=== PATIENT | female | born 1930 | race Caucasian/White ===

== ENCOUNTER 2021-06-30 21:08 | Inpatient (IN) ==
[2021-07-01] MEDS ORDERED: MOM Conc 10 ML UD.LIQ PO PRN (02:08)
[2021-07-01] MEDS ORDERED: Ondansetron 4 MG/2 ML VIAL IVP PRN (02:08)
[2021-07-01] MEDS ORDERED: Naloxone 0.4 MG/ML INJ IVP PRN (02:08)
[2021-07-01] MEDS ORDERED: Melatonin 3 MG TABLET PO PRN (02:08)
[2021-07-01] MEDS ORDERED: Acetaminophen 325 MG TABLET PO PRN (02:08)
[2021-07-01] MEDS ORDERED: Dextrose Gel 15 GM/37.5 ML TUBE PO PRN ×2 (02:20)
[2021-07-01] MEDS ORDERED: D5% in Water 1,000 ML IVC PRN (02:20)
[2021-07-01] MEDS ORDERED: *HR* Dextrose 50 % in Water (Syg) 50 ML SYRINGE IVP PRN (02:20)
[2021-07-01] MEDS ORDERED: Albuterol 2.5 MG/3 ML NEBULIZER IH PRN (03:26)
[2021-07-01 04:17] LABS: Basophils % 0.4 %; Eosinophils # 0.2 K/mcL (0.0-0.6); Eosinophils % 1.6 %; Hematocrit 30.2 % (35.3-44.9); Hemoglobin 9.3 g/dL (11.5-15.4); Immature Granulocytes % 0.4 % (0-4); Lymphocytes % 20.6 %; Mean Corpuscular HGB Conc 30.8 g/dL (31.6-35.5); Mean Corpuscular Hemoglobin 23.5 pg (28.0-33.3); Mean Corpuscular Volume 76.5 fL (83.0-100.0); Mean Platelet Volume 9.5 fL (9.4-12.4); Monocytes # 0.8 K/mcL (0.0-1.3); Monocytes % 8.3 %; Neutrophils # 6.5 K/mcL (1.6-8.9); Platelet Count 302 K/mcL (140-400); Red Blood Count 3.95 M/mcL (3.82-4.97); Red Cell Distribution Width 17.3 % (11.5-14.5); Segmented Neutrophils % 68.7 %; White Blood Count 9.5 K/mcL (4.3-11.1)
[2021-07-01 04:34] LABS: BUN/Creatinine Ratio 30 (6-26); Blood Urea Nitrogen 31 mg/dL (8-23); Calcium 9.2 mg/dL (8.6-10.3); Carbon Dioxide 25 mEq/L (23-29); Chloride 95 mEq/L (98-107); Glucose 203 mg/dL (70-105); Magnesium 1.4 mg/dL (1.6-2.6); Osmolality,Calculated 284 (280-300); Phosphorous 3.4 mg/dL (2.7-4.5); Potassium 3.9 mEq/L (3.5-5.1); Sodium 131 mEq/L (136-145); eGFR For African Americans > 60 (> 60); eGFR For Non-African Americans 50 (> 60)
[2021-07-01] MEDS ORDERED: Perflutren Lipid Microsphere 1.3 ML in 0.9 % Sodium Chloride 8.7 ML IVP PRN (04:35)
[2021-07-01] MEDS ORDERED: Nitroglycerin 0.4 MG TAB.SUBL SL PRN (04:35)
[2021-07-01] MEDS ORDERED: Aspirin 325 MG TABLET PO ONE (04:35)
[2021-07-01 04:41] LABS: Procalcitonin 0.03 ng/mL (0.00-0.15)
[2021-07-01 05:31] LABS: Iron 53 mcg/dL (50-170); Lactate Dehydrogenase 296 Units/L (140-271); Total Protein 6.7 g/dL (6.4-8.9)
[2021-07-01 05:44] LABS: Thyroid Stimulating Hormone 2.496 mcIU/mL (0.340-5.600)
[2021-07-01 06:22] LABS: INR 1.5; Prothrombin Time 16.3 Seconds (9.4-12.1)
[2021-07-01] MEDS: cefTRIAXone 1,000 MG in Water for inj. (sterile) 10 ML IVP SCH (07:47)
[2021-07-01] MEDS: Insulin LISPRO 300 UNITS/3 ML VIAL SUBQ SCH ×3 (08:01→16:47)
[2021-07-01] MEDS: DilTIAZem CD (24hr) 120 MG CAP.ER.24H PO SCH (11:08)
[2021-07-01] MEDS: *HR* Digoxin 0.125 MG TABLET PO SCH (11:08)
[2021-07-02 01:35] LABS: Basophils # 0.1 K/mcL (0.0-0.2); Basophils % 0.5 %; Eosinophils # 0.2 K/mcL (0.0-0.6); Eosinophils % 1.6 %; Hematocrit 29.3 % (35.3-44.9); Immature Granulocytes % 0.4 % (0-4); Lymphocytes # 1.5 K/mcL (0.6-4.6); Lymphocytes % 15.8 %; Mean Corpuscular HGB Conc 30.7 g/dL (31.6-35.5); Mean Corpuscular Hemoglobin 23.5 pg (28.0-33.3); Mean Corpuscular Volume 76.5 fL (83.0-100.0); Mean Platelet Volume 9.8 fL (9.4-12.4); Monocytes # 0.8 K/mcL (0.0-1.3); Monocytes % 8.6 %; Platelet Count 310 K/mcL (140-400); Red Blood Count 3.83 M/mcL (3.82-4.97); Red Cell Distribution Width 17.2 % (11.5-14.5); Segmented Neutrophils % 73.1 %; White Blood Count 9.6 K/mcL (4.3-11.1)
[2021-07-02 01:47] LABS: INR 1.6; Prothrombin Time 17.6 Seconds (9.4-12.1)
[2021-07-02 01:56] LABS: Calcium 8.5 mg/dL (8.6-10.3); Potassium 3.8 mEq/L (3.5-5.1)
[2021-07-02] MEDS ORDERED: Aspirin 81 MG TAB.CHEW PO SCH (09:00)
[2021-07-02] MEDS: Aspirin 81 MG TAB.CHEW PO SCH (09:41)
[2021-07-02] MEDS: DilTIAZem CD (24hr) 120 MG CAP.ER.24H PO SCH (09:42)
[2021-07-02] MEDS: cefTRIAXone 1,000 MG in Water for inj. (sterile) 10 ML IVP SCH (09:42)
[2021-07-02] MEDS: *HR* Digoxin 0.125 MG TABLET PO SCH (09:42)
[2021-07-02] MEDS: Insulin LISPRO 300 UNITS/3 ML VIAL SUBQ SCH ×3 (09:43→17:34)
[2021-07-02] MEDS: Cyanocobalamin (B-12) 1,000 MCG TABLET PO SCH (13:09)
[2021-07-02] MEDS: Furosemide 40 MG/4 ML VIAL IVP SCH (13:09)
[2021-07-03 02:36] LABS: INR 1.4; Prothrombin Time 15.5 Seconds (9.4-12.1)
[2021-07-03 02:48] LABS: Basophils % 0.3 %; Eosinophils # 0.2 K/mcL (0.0-0.6); Eosinophils % 2.4 %; Hematocrit 30.2 % (35.3-44.9); Hemoglobin 9.5 g/dL (11.5-15.4); Immature Granulocytes % 0.5 % (0-4); Lymphocytes # 1.4 K/mcL (0.6-4.6); Lymphocytes % 15.4 %; Mean Corpuscular HGB Conc 31.5 g/dL (31.6-35.5); Mean Corpuscular Hemoglobin 24.2 pg (28.0-33.3); Mean Platelet Volume 9.9 fL (9.4-12.4); Monocytes # 0.8 K/mcL (0.0-1.3); Monocytes % 9.5 %; Neutrophils # 6.4 K/mcL (1.6-8.9); Platelet Count 306 K/mcL (140-400); Red Blood Count 3.92 M/mcL (3.82-4.97); Red Cell Distribution Width 17.6 % (11.5-14.5); Segmented Neutrophils % 71.9 %; White Blood Count 8.9 K/mcL (4.3-11.1)
[2021-07-03 02:51] LABS: Calcium 8.4 mg/dL (8.6-10.3); Potassium 3.9 mEq/L (3.5-5.1)
[2021-07-03 02:52] LABS: Lactate Dehydrogenase 291 Units/L (140-271); Total Protein 6.3 g/dL (6.4-8.9)
[2021-07-03] MEDS: cefTRIAXone 1,000 MG in Water for inj. (sterile) 10 ML IVP SCH (09:30)
[2021-07-03] MEDS: *HR* Digoxin 0.125 MG TABLET PO SCH (09:30)
[2021-07-03] MEDS: Cyanocobalamin (B-12) 1,000 MCG TABLET PO SCH (09:30)
[2021-07-03] MEDS: Furosemide 40 MG/4 ML VIAL IVP SCH (09:30)
[2021-07-03] MEDS: Aspirin 81 MG TAB.CHEW PO SCH (09:30)
[2021-07-03] MEDS: Metoprolol XL (24 HR) Succ 50 MG TAB.ER.24H PO SCH (09:30)
[2021-07-03] MEDS: Insulin LISPRO 300 UNITS/3 ML VIAL SUBQ SCH ×3 (10:07→17:49)
[2021-07-03 16:12] LABS: RBC,Pleural Fluid < 2000 RBC/mcL
[2021-07-03 16:15] LABS: Appearance of Pleural Fl Hazy (Clear)
[2021-07-03 16:23] LABS: Total Protein,Pleural Fluid 2.5 g/dL
[2021-07-03 17:38] LABS: Basophils,Pleural Fluid 0 %; Eosinophils,Pleural Fluid 0 %
[2021-07-04 02:29] LABS: INR 1.4; Prothrombin Time 15.4 Seconds (9.4-12.1)
[2021-07-04] MEDS: Aspirin 81 MG TAB.CHEW PO SCH (07:49)
[2021-07-04] MEDS: Cyanocobalamin (B-12) 1,000 MCG TABLET PO SCH (07:49)
[2021-07-04] MEDS: Metoprolol XL (24 HR) Succ 50 MG TAB.ER.24H PO SCH (07:49)
[2021-07-04] MEDS: cefTRIAXone 1,000 MG in Water for inj. (sterile) 10 ML IVP SCH (07:49)
[2021-07-04] MEDS: *HR* Digoxin 0.125 MG TABLET PO SCH (07:49)
[2021-07-04] MEDS: Furosemide 40 MG/4 ML VIAL IVP SCH (07:49)
[2021-07-04] MEDS: Insulin LISPRO 300 UNITS/3 ML VIAL SUBQ SCH ×2 (07:50→11:34)
[2021-07-04 11:15] VITALS: PULSE 81
[2021-07-04 13:51] LABS: % Iron Saturation 11 % (15-50); Transferrin 351 mg/dL (200-400)
[2021-07-04 15:13] VITALS: BP 133/78; TEMP 98.6; O2SAT 95
[2021-07-06 01:40] LABS: Fluid Source for Cholesterol PLEURAL FLUID
[2021-07-06 07:25] LABS: Cholesterol,Body Fluid 24 mg/dL
== END 2021-07-04 16:10 | disposition home health service (06) | DRG 280 ==
LOC: 3NENU → SUATTDRO 07-01 00:57
PROVIDERS: ADMIT Student in an Organized Health Care Education/Training Program; ATTEND Internal Medicine